=== PATIENT | male | born 1970 | race Asian ===

== ENCOUNTER 2021-06-26 16:29 | Emergency (ER) | payer OTHER ==
[~2021-06-26] VITALS: Ht 177.8 cm; Wt 86.2 kg
[2021-06-26 19:35] VITALS: BP 135/86
[2021-06-26] MEDS ORDERED: METHOCARBAMOL 500 MG TAB PO ONE (19:45)
[2021-06-26] MEDS ORDERED: KETOROLAC TROMETH 30 MG/ML 1ML VIAL IM ONE (19:45)
[2021-06-26] MEDS ORDERED: IBUP800T27 PO (20:09)
[2021-06-26] MEDS ORDERED: METH500T22 PO (20:09)
== END 2021-06-26 20:39 | disposition home or self-care (01) ==
LOC: EDBD 16:29 → ER 16:29
DX: S16.1XXA Strain of muscle, fascia and tendon at neck level, initial encounter (principal); S46.911A Strain of unspecified muscle, fascia and tendon at shoulder and upper arm level, right arm, initial encounter; S13.4XXA Sprain of ligaments of cervical spine, initial encounter; R51.9 Headache, unspecified; E11.9 Type 2 diabetes mellitus without complications; E78.5 Hyperlipidemia, unspecified; I10 Essential (primary) hypertension; F17.210 Nicotine dependence, cigarettes, uncomplicated; X58.XXXA Exposure to other specified factors, initial encounter; Y93.89 Activity, other specified; Y92.89 Other specified places as the place of occurrence of the external cause; Y99.8 Other external cause status
CPT/HCPCS: 70450; 72125; 93005; 96372; 99284; J1885